=== PATIENT | female | born 1965 | race Caucasian/White ===

== ENCOUNTER 2020-06-12 17:59 | Inpatient (IN) | payer OTHER, SELFPAY ==
[~2020-06-12] VITALS: Ht 157.5 cm; Wt 69.4 kg
[2020-06-12 18:16] VITALS: Ht 157.5 cm; Wt 69.4 kg
[2020-06-12 20:21] LABS: BASOPHIL % 0.2 % (0.2-1.3); PLATELET COUNT 329 x10^3mcL (179-408); RED CELL DISTRIBUTION WIDTH 12.4 % (12.3-17.7)
[2020-06-12 20:59] LABS: BILIRUBIN TOTAL 0.83 mg/dL (0.20-1.00); CARBON DIOXIDE 33.1 mmol/L (21-32); CREATININE SERUM 1.1 mg/dL (0.6-1.0); TOTAL PROTEIN, SERUM 7.8 g/dL (6.4-8.2)
[2020-06-12 21:04] LABS: POTASSIUM SERUM 2.5 mmol/L (3.5-5.1)
[2020-06-12 21:26] LABS: C REACTIVE PROTEIN 18.4 mg/dL (<=0.9)
[2020-06-13] VITALS (7 sets, daily range): BP systolic 107–142; BP diastolic 65–81
[2020-06-13] MEDS ORDERED: LEVOXYL150 MCG PO (00:43)
[2020-06-13] MEDS ORDERED: MICROZIDE12.5 MG PO (00:56)
[2020-06-13] MEDS ORDERED: PROAIR RES117 MCG/Ac INH (00:56)
[2020-06-13] MEDS ORDERED: WIXELA 100-501 EACH IH (00:58)
[2020-06-13 07:46] LABS: BASOPHIL % 0.1 % (0.2-1.3); PLATELET COUNT 351 x10^3mcL (179-408); RED CELL DISTRIBUTION WIDTH 12.5 % (12.3-17.7)
[2020-06-13 08:20] LABS: CALCIUM 9.1 mg/dL (8.5-10.1); CARBON DIOXIDE 33.5 mmol/L (21-32); CHLORIDE SERUM 97 mmol/L (98-107); CREATININE SERUM 0.9 mg/dL (0.6-1.0); GFR1 > 60 mL/min; GLUCOSE SERUM 174 mg/dL (74-106); MAGNESIUM 2.7 mg/dL (1.8-2.4); POTASSIUM SERUM 3.1 mmol/L (3.5-5.1); SODIUM SERUM 139 mmol/L (136-145)
[2020-06-13] MEDS ORDERED: DECADRON6 MG PO (17:50)
[2020-06-13] MEDS ORDERED: VITAMIN C100 M2 PO (17:51)
[2020-06-13] MEDS ORDERED: MUCINEX600 MG PO (17:51)
[2020-06-13] MEDS ORDERED: D-10001 TAB PO (17:51)
== END 2020-06-13 22:15 | disposition home or self-care (01) | DRG 720 ==
LOC: ED 17:59 → DU 21:55
PROVIDERS: Emergency Medicine; ADMIT Internal Medicine; ATTEND Internal Medicine
DX: A41.89 Other specified sepsis (principal); U07.1 COVID-19; J96.01 Acute respiratory failure with hypoxia; E87.1 Hypo-osmolality and hyponatremia; J12.82 Pneumonia due to coronavirus disease 2019; E87.6 Hypokalemia; E03.9 Hypothyroidism, unspecified; R74.01 Elevation of levels of liver transaminase levels; I10 Essential (primary) hypertension; J45.909 Unspecified asthma, uncomplicated; Z79.899 Other long term (current) drug therapy
CPT/HCPCS: 36600; 83880; 85378; 87804; G0378; J1100; J1644; J3480; J7030; U0003